=== PATIENT | female | born 1960 | race African-American/Black ===

== ENCOUNTER 2016-09-28 18:26 | Emergency (ER) | payer OTHER ==
[2016-09-28 18:33] VITALS: BP 155/90; PULSE 72; TEMP 98; BMI 35.5
[2016-09-28] MEDS ORDERED: IBUPROFEN 600 MG TABLET (FP) PO ONE (18:54)
[2016-09-28] MEDS ORDERED: IBUPROFEN 100 MG/5 ML UNIT DOSE CUPS ONE (18:57)
--- NOTE | 2016-09-28 19:03 | PDOC ---
History of Present Illness - General Chief Complaint: Sore Throat Stated Complaint: Sore throat Time Seen by Provider: 09/28/16 18:36 History Source: Patient Exam Limitations: No Limitations - History of Present Illness Initial Comments: 09/28/16 18:55 56 yr female with sore throat for one week. no fever or chills, pt also with post nasal drip and nasal congestion. 09/28/16 19:04 09/28/16 19:10 Timing/Duration: reports: week Severity: reports: mild Past History - Past Medical History Allergies/Adverse Reactions: Allergies Allergy/AdvReac Type Severity Reaction Status Date / Time latex Allergy Verified 09/28/16 18:31 Home Medications: Ambulatory Orders Fluticasone Prop 0.05% Nasal [Flonase -] 1 - 2 spray NS DAILY #1 spray.pump Ibuprofen 800 mg PO TID PRN #21 tablet 09/28/16 HTN: Yes (non-compliant with meds. pt states "I dont give a F about my Blood pressure) Seizures: Yes - Psycho/Social/Smoking Cessation Hx Anxiety: No Suicidal Ideation: No Smoking History: Never smoked Information on smoking cessation initiated: No Hx Alcohol Use: No Drug/Substance Use Hx: No Substance Use Type: None Respiratory Specific PMHX - Complaint Specific PMHX Angina: No Bronchitis: No Pneumonia: No Pulmonary Embolus: No TB (Tuberculosis): No Review of Systems - Review of Systems Able to Perform ROS?: Yes Is the patient limited Azeri proficient: No Constitutional: No: Symptoms Reported HEENTM: Yes: Nose Congestion, Throat Pain *Physical Exam - Vital Signs Last Vital Signs Temp Pulse Resp BP Pulse Ox 98 F 72 18 155/90 99 09/28/16 18:28 09/28/16 18:28 09/28/16 18:28 09/28/16 18:28 09/28/16 18:28 - Physical Exam General Appearance: Yes: Nourished, Appropriately Dressed HEENT: positive: EOMI, GREG, Normal ENT Inspection, TMs Normal, Pharynx Normal Neck: positive: Supple. negative: Tender Respiratory/Chest: positive: Lungs Clear, Normal Breath Sounds. negative: Chest Tender Cardiovascular: positive: Regular Rhythm, Regular Rate Extremity: positive: Normal Capillary Refill, Normal Inspection, Normal Range of Motion Integumentary: positive: Normal Color, Dry, Warm Neurologic: positive: Fully Oriented, Alert, Normal Mood/Affect, Normal Response , Motor Strength 5/5 Medical Decision Making - Medical Decision Making 09/28/16 19:11 cc: sore throat for one week no fever non toxic appearing speaking full sentences, clearly will check for strep motrin for pain *DC/Admit/Observation/Transfer Diagnosis at time of Disposition: URI (upper respiratory infection) Qualifiers: URI type: unspecified viral URI Qualified Code(s): J06.9 - Acute upper respiratory infection, unspecified; B97.89 - Other viral agents as the cause of diseases classified elsewhere - Discharge Dispostion Disposition: HOME Condition at time of disposition: Good - Prescriptions Prescriptions: Fluticasone Prop 0.05% Nasal [Flonase -] 1 - 2 spray NS DAILY #1 spray.pump Ibuprofen 800 mg PO TID PRN #21 tablet PRN Reason: Pain - Referrals Referrals: Bereket Collier MD [Staff Physician] - - Patient Instructions Additional Instructions: negative strep culture use the flonase nasal spray to help with any congestion, runny nose , post nasal drip take ibuprofen for pain eat bland foods avoid spicy or fatty foods as this can make sore throat worse can cause reflux gargle with warm salt water 4-5 times a day follow with the ENT for follow up if not improving
== END 2016-09-28 20:10 | disposition home or self-care (01) ==
LOC: JERFT 18:26
DX: J06.9 Acute upper respiratory infection, unspecified (principal); B97.89 Other viral agents as the cause of diseases classified elsewhere; I10 Essential (primary) hypertension
CPT/HCPCS: 87070; 87430; 99281-25

== ENCOUNTER 2020-06-30 23:43 | Emergency (ER) | payer OTHER ==
[2020-06-30 23:51] VITALS: BMI 32.9
--- OUTSIDE RECORDS SUMMARY | 2020-06-30 23:59 | XMS ---
:1960 Author [facility] Support Name Relationship Address Phone UE Unavailable Unavailable Unavailable ABDI MARIE DAUGHTER [address] [phone] [place] [address] Re-disclosure Warning The records that you are about to access may contain information from federally- assisted alcohol or drug abuse programs. If such information is present, then the following federally mandated warning applies: This information has been disclosed to you from records protected by federal confidentiality rules (42 CFR part 2). The federal rules prohibit you from making any further disclosure of this information unless further disclosure is expressly permitted by the written consent of the person to whom it pertains or as otherwise permitted by 42 CFR part 2. A general authorization for the release of medical or other information is NOT sufficient for this purpose. The Federal rules restrict any use of the information to criminally investigate or prosecute any alcohol or drug abuse patient.The records that you are about to access may contain highly sensitive health information, the redisclosure of which is protected by Article 27-F of the [facility] Public Health law. If you continue you may haveaccess to information: Regarding HIV / AIDS; Provided by facilities licensed or operated by the [facility] Office of Mental Health; or Provided by the [facility] Office for People With Developmental Disabilities. If such information is present, then the following [facility] mandated warning applies: This information has been disclosed to you from confidential records which are protected by state law. State law prohibits you from making any further disclosure of this information without the specific written consent of the person to whom it pertains, or as otherwise permitted by law. Any unauthorized further disclosure in violation of state law may result in a fine or alf sentence or both. A general authorization for the release of medical or other information is NOT sufficient authorization for further disclosure. Insurance Providers Payer name Policy type / Policy ID Covered Covered libertarian's Policy Plan Coverage type libertarian ID relationship to Pike Information pike
--- NOTE | 2020-07-01 00:24 | PDOC ---
History of Present Illness - General Chief Complaint: Laceration Stated Complaint: LACERATION Time Seen by Provider: 07/01/20 00:24 - History of Present Illness Initial Comments: 07/01/20 00:24 HPI: blair out today at [facility], now with superficial wound dehisence Patient denies fever, chills, night sweats, CABRAL, vision change, chest pain, palpitations, SOB, cough, leg swelling, abdominal pain, nausea, vomiting, diarrhea, constipation, dysuria, hematuria, BPR, lightheadedness, weakness, sensory changes. PMHx: as noted above ROS: as noted SHx: Denies tobacco use; no alcohol use; no rec drugs Allergies: NKDA ROS: GENERAL/CONSTITUTIONAL: No fever or chills. No weakness. HEAD, EYES, EARS, NOSE AND THROAT: No change in vision. No ear pain or discharge. No sore throat. CARDIOVASCULAR: No chest pain or shortness of breath RESPIRATORY: No cough, wheezing, or hemoptysis. GASTROINTESTINAL: No nausea, vomiting, diarrhea or constipation. GENITOURINARY: No dysuria, frequency, or change in urination. MUSCULOSKELETAL: No joint or muscle swelling or pain. No neck or back pain. SKIN: No rash NEUROLOGIC: No headache, vertigo, loss of consciousness, or change in strength/sensation. ENDOCRINE: No increased thirst. No abnormal weight change HEMATOLOGIC/LYMPHATIC: No anemia, easy bleeding, or history of blood clots. ALLERGIC/IMMUNOLOGIC: No hives or skin allergy. PE: GENERAL: Awake, alert, and fully oriented, no acute distress HEAD: No signs of trauma, normocephalic, atraumatic EYES: EOMI, sclera anicteric, conjunctiva clear ENT: Auricles normal inspection, hearing grossly normal, nares patent, oropharynx clear without exudates. Moist mucosa NECK: Normal ROM, no lymphadenopathy LUNGS: No increased work of breathing, symmetrical chest rise, clear to auscultation bilaterally, no wheezes, crackles or rhonchi HEART: Regular rate, regular rhythm, normal S1 and S2, no murmur, peripheral pulses 2+ and equal bilaterally. ABDOMEN: Soft, nondistended, nontender. No guarding, no rebound. No masses. No CVAT MUSCULOSKELETAL: FROM NEUROLOGICAL: Cranial nerves II through XII grossly intact. Normal speech, stable gait, no focal sensorimotor deficits SKIN: Warm, Dry, normal turgor, no rashes or lesions noted 07/01/20 01:31 Past History - Medical History Allergies/Adverse Reactions: Allergies Allergy/AdvReac Type Severity Reaction Status Date / Time latex Allergy Verified 06/30/20 23:51 Home Medications: Ambulatory Orders Fluticasone Prop 0.05% Nasal [Flonase -] 1 - 2 spray NS DAILY #1 spray.pump 09/01 COPD: No HTN: Yes Seizures: Yes - Surgical History Abdominal Surgery: Yes (small bowel obstruction) - Psycho-Social/Smoking History Smoking History: Never smoked *Physical Exam - Vital Signs Last Vital Signs Temp Pulse Resp BP Pulse Ox 97.7 F 71 18 177/102 H 99 06/30/20 23:47 06/30/20 23:47 06/30/20 23:47 06/30/20 23:47 06/30/20 23:47 Discharge - Discharge Information Problems reviewed: Yes Clinical Impression/Diagnosis: Wound dehiscence Condition: Stable Disposition: HOME - Follow up/Referral - Patient Discharge Instructions Patient Printed Discharge Instructions: How to Care for a Surgical Wound- [place] Additional Instructions: Additional Instructions: Please return to the emergency department with any new or worsening symptoms or concerns including fever, worsening pain, pus drainage from wound. Please follow up with your surgeons TOMORROW at [facility]. I have spoken with your surgery team (Dr Rouse covering the night service) and they will see you tomorrow. You must present to the ER TOMORROW MORNING AT 9:00AM and when you arrive to the ER registration, you must notify them that you were sent in by the trauma surgery team to be re-evaluated for your wound. The surgery service will be present until 4:00pm but it was preferred you go in the morning to ensure the surgery team sees you. We will place a wet to dry dressing to be maintained on your wound until you followup tomorrow morning; do not remove it and do not change it - Post Discharge Activity
--- NOTE | 2020-07-01 00:26 | PDOC ---
Attending Attestation - Resident Resident Name: Jonah Rouse - ED Attending Attestation I have performed the following: I have examined & evaluated the patient, The case was reviewed & discussed with the resident, I agree w/resident's findings & plan - HPI HPI: 07/01/20 01:18 see resident hpi - Physicial Exam PE: 07/01/20 01:18 see resident exam - Medical Decision Making 07/01/20 01:19 60-year-old female status post ex lap with lysis of adhesions done in [facility] several weeks ago, patient is status post staple removal today at now with wound dehiscence Wound appears uninfected, due to thickness of adipose tissue it is not amenable to Steri-Strips, resuturing would increase infection risk Case discussed with surgical team at [facility] We will apply wet-to-dry dressing, patient to follow-up via the emergency department for surgical evaluation at their clinic tomorrow Discharge - Discharge Information Problems reviewed: Yes Clinical Impression/Diagnosis: Wound dehiscence - Follow up/Referral - Patient Discharge Instructions - Post Discharge Activity
[2020-07-01 02:47] VITALS: BP 158/82; PULSE 84; TEMP 99.2
== END 2020-07-01 02:47 | disposition home or self-care (01) ==
LOC: JER 23:43
DX: T81.31XA Disruption of external operation (surgical) wound, not elsewhere classified, initial encounter (principal)
CPT/HCPCS: 99283-25

== ENCOUNTER 2020-08-15 15:09 | Emergency (ER) | payer OTHER ==
[2020-08-15 15:20] VITALS: BP 218/120; PULSE 73; TEMP 98.2; BMI 32.3
[2020-08-15] MEDS ORDERED: TETRACAINE 0.5% HCL 0.6ML DROPPER.BOTTLE OD ONE (15:58)
[2020-08-15] MEDS ORDERED: FLUORESCEIN NA 1 EA STRIP OD ONE ×2 (16:00→16:07)
[2020-08-15] MEDS ORDERED: TETRACAINE 0.5% OPHTH SOLN 2 ML BOTTLE ONE (16:07)
[2020-08-15] MEDS ORDERED: FLUORESCEIN NA 1 EA STRIP ONE (16:07)
== END 2020-08-15 18:27 | disposition home or self-care (01) ==
LOC: JER 15:09
DX: H01.00A Unspecified blepharitis right eye, upper and lower eyelids (principal)
CPT/HCPCS: 99284-25

== ENCOUNTER 2021-05-09 08:16 | Emergency (ER) | payer OTHER ==
[2021-05-09 08:28] VITALS: BP 203/101; PULSE 67; TEMP 97.6; BMI 35.4
[2021-05-09] MEDS ORDERED: DIPHTH,PERTUSS(ACELL),TET 0.5 ML DISP.SYRIN IM ONE ×2 (08:50→09:26)
== END 2021-05-09 09:30 | disposition home or self-care (01) ==
LOC: JER 08:16 → JERFT 08:16
PROC: 0HQKXZZ Repair Right Lower Leg Skin, External Approach (ICD-10-PCS; principal; 2021-05-09)
PROC: 3E0234Z Introduction of Serum, Toxoid and Vaccine into Muscle, Percutaneous Approach (ICD-10-PCS; 2021-05-09)
DX: S80.12XA Contusion of left lower leg, initial encounter (principal); S81.002A Unspecified open wound, left knee, initial encounter; W19.XXXA Unspecified fall, initial encounter; Y92.9 Unspecified place or not applicable
CPT/HCPCS: 12001-25; 90471; 90715; 99284-25

== ENCOUNTER 2021-05-17 08:26 | Emergency (ER) | payer OTHER ==
[2021-05-17 08:37] VITALS: BP 153/97; PULSE 65; TEMP 97.8; BMI 36.3
== END 2021-05-17 09:49 | disposition home or self-care (01) ==
LOC: JERFT 08:26
DX: Z48.02 Encounter for removal of sutures (principal)
CPT/HCPCS: 99281-25